=== PATIENT | male | born 1970 | race Caucasian/White ===

== ENCOUNTER 2019-06-26 10:02 | Emergency (ER) | payer OTHER ==
[~2019-06-26] VITALS: Ht 182.9 cm; Wt 90.7 kg
[2019-06-26 10:32] LABS: ABSOLUTE NEUTROPHILS 3.3 thou/uL (1.4-8.2); BASOPHILS 0.6 % (0.0-2.0); EOSINOPHILS 3.9 % (0.0-3.0); HEMOGLOBIN 15.4 gm/dL (14.0-18.0); MCH 32.8 pg (26.0-34.0); MCHC 34.1 g/dL (28.0-37.0); MONOCYTES 11.6 % (1.0-8.0); PLATELET COUNT 212 thou/uL (150-400); POLYS 46.9 % (36.0-66.0); RBC 4.69 mil/uL (4.50-6.00); RDW 12.4 % (10.5-14.5); WBC 7.1 thou/uL (4.0-11.0)
[2019-06-26 10:42] LABS: ANION GAP 10 mmol/L (7-16); BUN 17 mg/dL (7-18); CHLORIDE 100 mmol/L (98-107); CO2 27 mmol/L (21-32); GLUCOSE 140 mg/dL (74-106); POTASSIUM 3.7 mmol/L (3.5-5.1); SODIUM 137 mmol/L (136-145)
[2019-06-26 10:51] LABS: ALBUMIN 4.5 g/dL (3.4-5.0); SGOT 20 U/L (15-37); SGPT 37 U/L (30-65); TOTAL BILIRUBIN 0.6 mg/dL (<0.1-1.0); TOTAL PROTEIN 7.6 g/dL (6.4-8.2); TROPONIN-I <0.06 ng/mL (<0.06)
[2019-06-26 10:53] LABS: MAGNESIUM 1.7 mg/dL (1.8-2.4); TROPONIN-I <0.06 ng/mL (<0.06)
[2019-06-26 11:13] LABS: URINE BILIRUBIN NEGATIVE (Negative); URINE BLOOD TRACE (Negative); URINE CLARITY CLEAR; URINE COLOR YELLOW; URINE GLUCOSE-RANDOM* NEGATIVE (Negative); URINE KETONES NEGATIVE (Negative); URINE LEUKOCYTES-REFLEX NEGATIVE (Negative); URINE NITRITE-REFLEX NEGATIVE (Negative); URINE PROTEIN (DIPSTICK) NEGATIVE (Negative); URINE UROBILINOGEN 0.2 E.U./dl (0.2-1.0)
[2019-06-26 11:26] VITALS: BP 140/67
--- NOTE | 2019-06-27 17:20 | EKG ---
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
== END 2019-06-26 11:55 | disposition home or self-care (01) ==
LOC: ER 10:02
PROVIDERS: Emergency Medicine
DX: R55 Syncope and collapse (principal); R10.13 Epigastric pain; R03.0 Elevated blood-pressure reading, without diagnosis of hypertension; R07.9 Chest pain, unspecified; F17.210 Nicotine dependence, cigarettes, uncomplicated; F10.10 Alcohol abuse, uncomplicated